=== PATIENT | female | born 1960 | race Caucasian/White ===

== ENCOUNTER → 2020-02-17 | Outpatient (CLI) | payer OTHER ==
[~2020-02-17] VITALS: Ht 165.1 cm; Wt 89.4 kg
[2020-02-17 10:39] VITALS: BP 113/78
[2020-02-17 11:02] LABS: HEMATOCRIT 45.2 % (37.0-47.0); HEMOGLOBIN 15.1 gm/dL (12.0-15.0); MCH 29.8 pg (26.0-34.0); MCHC 33.3 g/dL (28.0-37.0); MCV 89.4 fL (80.0-100.0); RBC 5.06 mil/uL (4.20-5.00); RDW 14.2 % (10.5-14.5); WBC 8.9 thou/uL (4.0-11.0)
[2020-02-17 11:18] LABS: PROTIME 10.2 Seconds (9.3-11.4)
[2020-02-17 12:15] VITALS: BP 109/69
--- NOTE | 2020-02-18 17:08 | PATH ---
[facility] [address] [place] [address] PATHOLOGY RPT PROCEDURE Name: EZEQUIEL STAPLES Room #: REG LEAH Herring.#: [id number] Admission: 02/17/20 Date of : 60 Discharge: Report #: [id number] Path Case #: [id number] [facility] Accession Number: [id number] . 01 Material submitted: . liver - LIVER BX LEFT LOBE. Modifiers: left . 01 Clinical history: . Elevated LFT's . 02 Diagnosis: Liver, left lobe, needle core biopsy: - Steatohepatitis, mild grade I/III and mild perisinosoidal fibrosis, as well as pericellular fibrosis, stage I/IV. - NAFLD activity score 4/8. . (IUV:kole; 02/18/2020) QMS 02/18/2020 1648 Local . 02 Comment: Examination shows a needle core biopsy of liver with approximately 55% mixed macro and microvesicular steatosis, rare ballooned hepatocytes, occasional poorly formed Jana-Denk bodies along with a few glycogenated nuclei within Zone 1. The lobules show a mixed inflammatory infiltrate with occasional lipogranulomata. Portal tracts show mild chronic inflammation as well. . Trichrome stain shows pericellular as well as focal Zone 3 perisinusoidal fibrosis. Reticulin stain is distorted by the steatosis; however, does not show hepatocyte cord thickening or regenerative changes. Iron stain is negative. PAS with and without diastase are negative for globules in Zone 1. The NAFLD activity score is 4 of 8 with steatosis at 55% (2 points), rare ballooning (1 point), and less than 2 lobular inflammatory foci (1 point). . Steatohepatitis can be seen in several clinical settings including situations of insulin resistance, with alcohol use, as an adverse reaction to several medications, with hyperlipidemias, after gastric or small bowel resections, and as an idiopathic variant. Please correlate clinically. (IUV:kole; 02/18/2020) . 02 Electronically signed: . Yasmine Peng MD, Pathologist NPI- [id number] . 01 Gross description: . The specimen is received in formalin, labeled "Ezequiel Staples, liver BX [address] [address] PATHOLOGY RPT PROCEDURE Name: EZEQUIEL STAPLES Room #: REG [facility].#: [id number] Admission: 02/17/20 Date of : 60 Discharge: Report #: [id number] Path Case #: [id number] left lobe" and consists its of 2 delicate needle cores of orange interiano tissue measuring 1.8 cm in length and 0.1 cm each in diameter. They are entirely submitted in A1-A2. (SDY; 02/17/2020) SYU/SYU 02/17/2020 1551 Local . 02 Pathologist provided ICD-10: K75.81 . 02 CPT . 726914, 008683, 024237, 765106, 968270, 218448 Specimen Comment: A courtesy copy of this report has been sent to [phone] Specimen Comment: [phone], Specimen Comment: Report sent to ,DR COTO / DR CABRERA Performed at: [address], [place] [id number] MD Malcolm Garcia MD Phone: [phone] Performed at: [address] [id number] MD Yasmine Peng MD Phone: [phone]
== END | disposition home or self-care (01) ==
LOC: CAT 09:53 → ULTRA 09:53
PROVIDERS: Radiology Vascular & Interventional Radiology
DX: R94.5 Abnormal results of liver function studies (principal); K75.81 Nonalcoholic steatohepatitis (NASH); K74.2 Hepatic fibrosis with hepatic sclerosis; F17.210 Nicotine dependence, cigarettes, uncomplicated; Z98.890 Other specified postprocedural states; Z79.899 Other long term (current) drug therapy; Z90.49 Acquired absence of other specified parts of digestive tract; Z90.710 Acquired absence of both cervix and uterus; Z98.0 Intestinal bypass and anastomosis status; Z96.651 Presence of right artificial knee joint; Z82.49 Family history of ischemic heart disease and other diseases of the circulatory system; Z83.3 Family history of diabetes mellitus